=== PATIENT | male | born 1945 | race Caucasian/White ===

== ENCOUNTER → 2023-05-27 | Outpatient (CLI) | payer MEDICARE, OTHER | END | disposition home or self-care (01) | LOC: OIH 08:23 | PROVIDERS: ATTEND Internal Medicine | DX: Z13.6 Encounter for screening for cardiovascular disorders (principal); I10 Essential (primary) hypertension; J44.9 Chronic obstructive pulmonary disease, unspecified; R94.31 Abnormal electrocardiogram [ECG] [EKG]; I70.0 Atherosclerosis of aorta | CPT/HCPCS: 71046; 75571 ==

== ENCOUNTER 2023-06-18 08:10 | Day surgery (SDC) | payer MEDICARE, OTHER ==
[2023-06-16 12:56] LABS: BASOPHILS # (AUTO) 0.06 K/uL (0.00-0.20); BASOPHILS % (AUTO) 0.6 % (0.0-5.0); EOSINOPHILS # (AUTO) 0.29 K/uL (0.00-0.70); EOSINOPHILS % (AUTO) 2.8 % (0.0-8.0); HEMATOCRIT 41.2 % (42-54); IMMATURE GRANULOCYTE ABSOLUTE 0.03 K/uL (0-1); LYMPHOCYTES # (AUTO) 2.8 K/uL (1.0-4.8); LYMPHOCYTES % (AUTO) 27.1 % (21.0-51.0); MEAN CORPUSCULAR HEMOGLOBIN 28.5 pg (27.0-33.0); MONOCYTES # (AUTO) 0.6 K/uL (0.1-1.0); MONOCYTES % (AUTO) 5.5 % (3.0-13.0); NEUTROPHILS # (AUTO) 6.6 K/uL (1.8-7.7); NEUTROPHILS % (AUTO) 63.7 % (40.0-77.0); PLATELET COUNT (AUTO) 199 K/uL (130-400); RED BLOOD CELL COUNT(AUTO) 4.63 MIL/uL (4.50-6.20); RED CELL DISTRIBUTION WIDTH 13.9 % (11.0-15.5); WHITE BLOOD COUNT (AUTO) 10.3 K/uL (4.8-10.8)
[2023-06-16 12:59] VITALS: BP 154/72; PULSE 63; RESP 17
[2023-06-16 13:08] LABS: INR 0.95 (0.85-1.15); POTASSIUM 4.9 mmol/L (3.5-5.1); PROTHROMBIN TIME 11.1 SEC (9.6-11.6)
[2023-06-16 13:10] LABS: PARTIAL THROMBOPLASTIN TIME 26.8 SEC (26.3-35.5)
[2023-06-16 13:15] LABS: APPEARANCE,URINE CLEAR (CLEAR); BILIRUBIN,URINE NEGATIVE (NEGATIVE); COLOR,URINE LIGHT-YELLOW (YELLOW); GLUCOSE, URINE (UA) NEGATIVE (NEGATIVE); KETONES,URINE NEGATIVE (NEGATIVE); LEUKOCYTE ESTERASE ,URINE NEGATIVE Leu/uL (NEGATIVE); NITRATE,URINE NEGATIVE (NEGATIVE); OCCULT BLOOD,URINE NEGATIVE (NEGATIVE); PROTEIN,URINE NEGATIVE (NEGATIVE); UROBILINOGEN,URINE 0.2 mg/dL (0.2-1.0)
[2023-06-16 13:18] LABS: B-TYPE NATRIURETIC PEPTIDE 68 pg/mL (0-100)
[2023-06-16 13:21] LABS: ADD UA MICROSCOPIC NO
[2023-06-18] VITALS (9 sets, daily range): BP systolic 110–141; BP diastolic 48–69; PULSE 46–66; RESP 15–19
[~2023-06-18] VITALS: Ht 190.5 cm; Wt 85.5 kg
[~2023-06-18 08:10] MED LIST: AEC81 PO; AMLO1CAP88 PO; CETI-89 PO; ROSU20TA73 PO
[2023-06-18] MEDS ORDERED: 0.9%NACL 1000ML 1,000 ML IV ONE (08:19)
[2023-06-18] MEDS ORDERED: MEPERIDINE-PF 25 MG/ML SYG ONE ×2 (13:00→13:33)
[2023-06-18] MEDS ORDERED: HEPARIN 10,000 UNIT/10ML (1,000 UNIT/ML) VIAL ONE (13:00)
[2023-06-18] MEDS ORDERED: IOHEXOL 350 MG/ML 100ML INFUS..BTL IV ONE (13:00)
[2023-06-18] MEDS ORDERED: SODIUM BICARB 50MEQ 50ML VIAL 50 ML ONE (13:00)
[2023-06-18] MEDS ORDERED: MIDAZOLAM HCL 1 MG/ML 2ML VIAL ONE ×2 (13:00→13:34)
[2023-06-18] MEDS ORDERED: LIDOCAINE HCL 400MG/20ML VIAL ONE (13:00)
[2023-06-18] MEDS ORDERED: NICARDIPINE 25MG INJ IV ONE (13:13)
[2023-06-18] MEDS ORDERED: IOHEXOL-350 50ML VIAL IV ONE (13:25)
[2023-06-18] MEDS ORDERED: ASPIRIN 325MG EC TAB PO ONE (14:37)
[2023-06-18] MEDS ORDERED: CLOPIDOGREL 300MG TAB ONE (14:37)
[2023-06-18] MEDS ORDERED: 0.9%NACL 1000ML 1,000 ML IV SCH (15:30)
== END 2023-06-18 19:30 | disposition home or self-care (01) ==
LOC: DAH 08:10
PROVIDERS: ATTEND Internal Medicine Cardiovascular Disease
DX: I25.10 Atherosclerotic heart disease of native coronary artery without angina pectoris (principal); I34.0 Nonrheumatic mitral (valve) insufficiency; I11.0 Hypertensive heart disease with heart failure; I50.42 Chronic combined systolic (congestive) and diastolic (congestive) heart failure; E78.5 Hyperlipidemia, unspecified; Z79.899 Other long term (current) drug therapy; Z79.82 Long term (current) use of aspirin; Z87.891 Personal history of nicotine dependence; Z72.89 Other problems related to lifestyle; Z80.9 Family history of malignant neoplasm, unspecified; Z98.49 Cataract extraction status, unspecified eye; Z90.49 Acquired absence of other specified parts of digestive tract; Z98.890 Other specified postprocedural states
CPT/HCPCS: 80048; 83880; 85025; 85610; 85730; 81003; 36415; 71045; 93005; 93458; 85347; C9600; C1769 ×2; C1725 ×2; A4649; C1894; C1887 ×2; Q9965 ×2; C1874 ×3; J3490 ×3; J7030; J1644 ×2; J2250 ×2; J2175 ×2; Q9967 ×2; A4215; A4222; A4221; A4663; A4216; A4606; C9601; A4223 ×3; 99156; 99157

== ENCOUNTER → 2023-07-26 | Outpatient (CLI) | payer MEDICARE, OTHER | END | disposition home or self-care (01) | LOC: SHCH 13:14 | PROVIDERS: ATTEND Internal Medicine Cardiovascular Disease | DX: I08.0 Rheumatic disorders of both mitral and aortic valves (principal); I25.10 Atherosclerotic heart disease of native coronary artery without angina pectoris; E78.5 Hyperlipidemia, unspecified; I11.9 Hypertensive heart disease without heart failure | CPT/HCPCS: 93306 ==

== ENCOUNTER → 2024-07-10 | Outpatient (CLI) | payer MEDICARE, OTHER ==
[~2024-07-10] MED LIST changes: -ROSU20TA73 PO; +ROSU20TA98 PO
--- NOTE | 2024-07-10 10:12 | HMCIMG ---
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 FINDINGS: Color flow Doppler ultrasound shows mild plaque in both bifurcations. There is no anatomic evidence of significant focal narrowing. Flow velocities and velocity ratios appear normal throughout. There is antegrade flow in both vertebral arteries. RIGHT CAROTID: CCA: 53 cm/sec ICA: 103 cm/sec Ratio: ICA/CCA: 1.9 ECA: 104 cm/sec Vertebral artery: 62 cm/sec LEFT CAROTID: CCA: 51 cm/sec ICA: 92 cm/sec Ratio: ICA/CCA: 1.8 ECA: 128 cm/sec Vertebral artery: 54 cm/sec IMPRESSION: Normal bilateral carotid Doppler ultrasound.
== END | disposition home or self-care (01) ==
LOC: RAH 08:35
PROVIDERS: ATTEND Internal Medicine Cardiovascular Disease
DX: I65.23 Occlusion and stenosis of bilateral carotid arteries (principal)
CPT/HCPCS: 93880

== ENCOUNTER → 2024-08-25 | Outpatient (CLI) | payer MEDICARE, OTHER ==
--- NOTE | 2024-08-29 08:24 | HMCSR ---
APPROVED REPORT EXAM: Two-dimensional and M-mode echocardiogram with Doppler and color Doppler. INDICATION ICD: Z95.5 Presence of coronary angioplasty implant and graft Hypertension Dyspnea 2D Dimensions RVDd4.7 cmLVEF(%)28.1 (>50%)LVED Vol(simp.)223.0 mL IVSd1.2 (0.7-1.1cm)FS(%)13 %LVES Vol(simp.)151.0 mL LVDd6.3 (3.8-5.6cm)Ao Root(2D)3.8 (2.0-3.7cm)LVEF(%, simp.)32 % PWd1.0 (0.7-1.1cm)LVOT diam2.3 (1.8-2.4cm)LA ESV INDEX (BP)53.58 mL/m2 LVDs5.5 (2.5-4.0cm)IVC diam2.0 cm Aortic Valve AoV Vmax1.6 m/[place] GR10.2 mmHgLVOT Vmax0.8 m/s AoV VTI0.4 mAo Mean GR6.3 mmHgLVOT VTI0.20 m NICOLE (VMAX)2.3 cm2AVA (VTI) 2.3 cm2 Mitral Valve MV E Egog583.2 cm/sDECEL Hkan910 msMR AZH835 cm2 MV A Vmax68.9 cm/sP 1/2 T51 ms E/A ratio1.5MVA (PHT)4.3 cm2 MR Max PG124 mmHgMR Mean PG84 mmHg TDI E/E' Rxekrt36.9E/E' Lateral8.9 Pulmonary Valve PV Vmax0.9 m/sPV VTI0.23 mPV Mean GR2 mmHg PV Peak GR3.6 mmHg Tricuspid Valve TR Vmax2.6 m/sRAP (EST) 8 czYlMQGZ84.6 mmHg TR Peak GR27.6 mmHg Left Ventricle The left ventricle is dilated. Sigmoid septum is present. LVEF is 30-35%. No left ventricle thrombus noted on this study. Grade 2 diastolic dysfunction. Right Ventricle The right ventricle is moderately dilated. The right ventricular systolic function is normal. Atria The left atrium is severely dilated. The right atrium is severely dilated. Aortic Valve Aortic valve is trileaflet. Aortic valve leaflets are sclerotic but open well. Trace aortic regurgita tion. There is no aortic valvular stenosis. Mitral Valve Mitral valve leaflets are mildly sclerotic but open well. Mitral regurgitation is moderately severe. There is no mitral valve stenosis. Tricuspid Valve The tricuspid valve leaflets appear normal. There is trace to mild tricuspid regurgitation. Right diamond tricular systolic pressure is estimated at 30-40 mmHg. Pulmonic Valve The pulmonic valve leaflets are thin and pliable; valve motion is normal. There is trace to mild valv ular regurgitation. Great Vessels Aortic root is mildly dilated. IVC is dilated and collapses >50% with inspiration. Pericardium No pericardial effusion. Conclusion The left ventricle is dilated. Sigmoid septum is present. LVEF is 30-35%. Grade 2 diastolic dysfunction. The right ventricle is moderately dilated. The left atrium is severely dilated. The right atrium is severely dilated. Aortic valve is trileaflet. Aortic valve leaflets are sclerotic but open well. Trace aortic regurgitation. Mitral valve leaflets are mildly sclerotic but open well. Mitral regurgitation is moderately severe. There is no mitral valve stenosis. There is trace to mild tricuspid regurgitation. Right ventricular systolic pressure is estimated at 30-40 mmHg. The pulmonic valve leaflets are thin and pliable; valve motion is normal. There is trace to mild valvular regurgitation. Aortic root is mildly dilated. IVC is dilated and collapses >50% with inspiration. No pericardial effusion.
== END | disposition home or self-care (01) ==
LOC: SHCH 13:20
PROVIDERS: ATTEND Internal Medicine Cardiovascular Disease
DX: I08.8 Other rheumatic multiple valve diseases (principal); I11.9 Hypertensive heart disease without heart failure; R06.00 Dyspnea, unspecified; Z95.5 Presence of coronary angioplasty implant and graft
CPT/HCPCS: 93306

== ENCOUNTER → 2024-08-28 | Outpatient (CLI) | payer MEDICARE, OTHER ==
[2024-08-28] MEDS: REGADENOSON 0.4 MG/5 ML PF SYG IVP ONE (11:27)
--- NOTE | 2024-08-29 08:29 | HMCSR ---
APPROVED REPORT Height: 6 ft 3in Weight: 185 lbs TEST INDICATIONS Dyspnea , Hypertension/HDD, PRESENCE OF CORONARY ANGIOPLASTY The imaging protocol used to acquire images was Rest Tc-99m/stress Tc-99m 1 day Consent: The procedure was explained and understood by the patient. Informerd consent was witnessed Anthony Martínez RN First, low dose rest was performed then high dose stress. RESTING DATA: The resting ekg shows: NSR Rest SPECT myocardial perfusion imaging was performed in supine position 80 minutes following the int ravenous injection of 11.2 mCi of Tc-99 Sestamibi. Time of rest injection: 08:00: Date: 08/28/2024 Time of rest imagin:20: Date: 08/28/2024 PHARMACOLOGIC STRESS: Pharmacologic stress test was performed by injecting regadenoson 0.4 mg IV push followed by the intra venous injection of 30.8 mCi of Tc-99 Sestamibi. Time of stress injection: 09:54: Date: 08/28/2024 Time of stress imagin:05: Date: 08/28/2024 Heart Rate at time of stress injection: 51 bpm. Gated Stress SPECT was performed 71 minutes after stress injection. The images were gated to evaluate regional wall motion and calculate left ventricular ejection fracti on. STRESS DETAILS Reason for Termination: Infusion complete Stress Symptoms: No chest pain or symptoms Max HR Achieved: 77 bpm % of APMHR Achieved: 54 Max Blood Pressure: 152/66 mmHg Stress ECG: NSR LEFT VENTRICLE Size: The left ventricular size is mildly dilated. Systolic Function:The left ventricular systolic function is moderately decreased. Wall Motion: Global hypokinesis. The left ventricular ejection fraction was calculated to be 47%.TID = . LV PERFUSION Predominantly fixed infero-lateral defect. Fixed anterior wall defect. No reversible defects identified. Conclusion The left ventricular size is mildly dilated. The left ventricular systolic function is moderately decreased. Global hypokinesis. Predominantly fixed infero-lateral defect. Fixed anterior wall defect. No reversible defects identified. The left ventricular ejection fraction was calculated to be 47%.
== END | disposition home or self-care (01) ==
LOC: SHCH 07:36
PROVIDERS: ATTEND Internal Medicine Cardiovascular Disease
DX: I11.9 Hypertensive heart disease without heart failure (principal); R06.00 Dyspnea, unspecified; Z95.5 Presence of coronary angioplasty implant and graft
CPT/HCPCS: 78452; 93017; J2785; A9500 ×2